=== PATIENT | male | born 1975 | race Caucasian/White ===

== ENCOUNTER 2023-09-08 13:37 | Inpatient (IN) | payer SELFPAY ==
[2023-09-08 13:39] VITALS: BP 112/67; PULSE 60; RESP 18; TEMP 37; O2SAT 98
--- NOTE | 2023-09-08 13:49 | ED.C_ITS ---
Documented by User: RAÚL Jay 09/08/23 14:55 HPI - Psych 2 General: Chief Complaint: Psychiatric Symptoms Stated Complaint: MHE Time Seen by Provider: 09/08/23 13:44 Source: patient Mode of arrival: ambulatory Limitations: no limitations History of Present Illness: Patient is a 48-year-old male who presents to ED today via police and EMS after he was found on the side of the road throwing fruit out to oncoming traffic. Upon police engagement, patient appeared acutely psychotic thus prompting them to bring him to the ED for psychiatric evaluation. Upon my assessment, patient's speech is tangential and pressured. He tells me he is from [place] but came from [place], [place] and is trying to get to [facility] to the vision of [employer] as they are stealing his paychecks. He states that several agents are out to take his social security and money. He talks about crooked city designer. He states the city designer that picked him up had semen/ejaculate on their pants. Many of his comments are disorganized and illogical. He does know he is in [place], [place] but cannot tell me why. States he walked here. MD complaint: altered mental status Onset (ago): unknown Treatments prior to arrival: none Review of Systems 2 General: Reports: ROS unobtainable due to mental status (psychosis) Physical Exam 2 Const: COMMON NORMALS: average body habitus, patient oriented x3 and alert GENERAL APPEARANCE: cooperative ORIENTATION/CONSCIOUSNESS: Yes awake, Yes oriented to person, Yes oriented to place and Yes oriented to time Neuro: ZEV COMA SCALE: document GCS findings Zev coma scale eye opening: Spontaneous [place] coma scale verbal response: Orientated [place] coma scale motor response: Obey commands [place] coma scale total score: 15 COMMON NORMALS: patient oriented x3 SENSORIUM/ORIENTATION: Yes alert, Yes oriented to person, Yes oriented to place and Yes oriented to time Psych: COMMON NORMALS: mental status grossly normal and cooperative A PPEARANCE: Yes grossly normal ACTIVITY/MOTOR BEHAVIOR: Yes appropriate eye contact SPEECH: Yes excessive and Yes Pressured speech present THOUGHT PROCESS: disorganized ATTENTION/CONCENTRATION: Yes concentration grossly impaired INSIGHT: Poor insight present (Psych) JUDGEMENT: Poor judgement present (Psych) Course 2 Consultations: Consultation #1: Dr. Silva-accepts to NPU once cleared medically Vital Signs: Vital signs: Vital Signs Temperature 98.6 F 09/08/23 13:39 Pulse Rate 60 09/08/23 13:39 Respiratory Rate 18 09/08/23 13:39 Blood Pressure 112/67 09/08/23 13:39 Pulse Oximetry 98 09/08/23 13:39 Oxygen Delivery Me thod Room Air 09/08/23 13:39 MDM - Psych Medical Decision Making Patient is a 48-year-old male here with symptoms of psychosis. He will be placed on a 96-hour hold. Dr. Moreira has also assessed patient. I have spoken to Dr. Silva who will accept patient to NPU pending medical clearance. Differential Diagnosis Likely acute psychosis, chronic schizophrenia and drug-induced psychotic disorder Lab Data I reviewed the patient's lab results. 09/08/23 14:10 09/08/23 14:10 Laboratory Results WBC 6.62 10^3/uL (3.29-11.43) 09/08/23 14:10 RBC 4.63 10^6/uL (3.85-5.65) 09/08/23 14:10 Hgb 14.80 g/dL (11.27-16.99) 09/08/23 14:10 Hct 46.2 % (37-53) 09/08/23 14:10 MCV 99.8 fl (82-101) 09/08/23 14:10 MCH 32.0 pg (27-33) 09/08/23 14:10 MCHC 32.0 g/dL (30-55) 09/08/23 14:10 RDW 13.0 % (12.1-15.1) 09/08/23 14:10 Plt Count 238 10^3/cmm (157-399) 09/08/23 14:10 MPV 10.0 fL (7.4-10.4) 09/08/23 14:10 Neut % (Auto) 73.2 % 09/08/23 14:10 Lymph % (Auto) 17.2 % 09/08/23 14:10 Brantley % (Auto) 6.3 % 09/08/23 14:10 Eos % (Auto) 2.1 % 09/08/23 14:10 Baso % (Auto) 0.9 % 09/08/23 14:10 Neut # (Auto) 4.84 10^3/uL (1.8-7.7) 09/08/23 14:10 Lymph # (Auto) 1.1 10^3/uL (0.8-4.8) 09/08/23 14:10 Brantley # (Auto) 0.4 10^3/uL (0.2-0.9) 09/08/23 14:10 Eos # (Auto) 0.1 10^3/uL (0.0-0.8) 09/08/23 14:10 Baso # (Auto) 0.1 10^3/uL (0.0-0.1) 09/08/23 14:10 Nucleated RBC % (auto) 0 % 09/08/23 14:10 Nucleated RBCs # 0.0 /100WBC 09/08/23 14:10 Sodium 141 mmol/L (136-145) 09/08/23 14:10 Potassium 4.4 mmol/L (3.5-5.1) 09/08/23 14:10 Chloride 103 mmol/L (98-107) 09/08/23 14:10 Carbon Dioxide 28 mmol/L (22-29) 09/08/23 14:10 Anion Gap 14.4 (5-19) 09/08/23 14:10 BUN 18 mg/dL (6-20) 09/08/23 14:10 Creatinine 0.8 mg/dL (0.7-1.2) 09/08/23 14:10 GFR Calculation 103.2 mL/min (90-130) 09/08/23 14:10 Glucose 72 mg/dL (65-115) 09/08/23 14:10 Calculated Osmolality 292 mOsm/kg (285-295) 09/08/23 14:10 Calcium 9.4 mg/dL (8.5-10.5) 09/08/23 14:10 Total Bilirubin 0.5 mg/dL (0.15-1.2) 09/08/23 14:10 AST 26 U/L (0-40) 09/08/23 14:10 ALT 22 U/L (0-41) 09/08/23 14:10 Alkaline Phosphatase 103 U/L (40-130) 09/08/23 14:10 Total Protein 8.2 g/dL (6.6-8.7) 09/08/23 14:10 Albumin 4.8 g/dL (3.5-5.2) 09/08/23 14:10 Globulin 3.4 g/dL (1.3-4.6) 09/08/23 14:10 Salicylates < 0.3 mg/dL (3-10) L 09/08/23 14:10 Urine Opiates Screen Negative ng/mL (Negative) 09/08/23 13:45 Acetaminophen < 5.0 ug/mL (10-30) L 09/08/23 14:10 Ur Barbiturates Screen Negative ng/mL (Negative) 09/08/23 13:45 Ur Phencyclidine Scrn Negative ng/mL (Negative) 09/08/23 13:45 Ur Amphetamines Screen Negative ng/mL (Negative) 09/08/23 13:45 U Benzodiazepines Scrn Negative ng/mL (Negative) 09/08/23 13:45 Urine Cocaine Screen Negative ng/mL (Negative) 09/08/23 13:45 U Marijuana (THC) Screen Negative ng/mL (Negative) 09/08/23 13:45 Ethyl Alcohol < 10 mg/dL (0-10) 09/08/23 14:10 No radiology studies performed this visit Discharge Plan Discharge Patient Disposition: Admitted As Inpatient Clinical Impression: Acute psychosis Condition: Stable Coding Level of Care Code ED Residential Treatment Counselor for Chg Fwd Documented by User: González Moreira MD 09/08/23 14:57 HPI - Psych 2 General: Chief Complaint: Psychiatric Symptoms Stated Complaint: MHE Time Seen by Provider: 09/08/23 13:44 Physical Exam 2 Neuro: ZEV COMA SCALE: document GCS findings Zev coma scale total score: 15 Course 2 Vital Signs: Vital signs: Vital Signs Temperature 98.6 F 09/08/23 13:39 Pulse Rate 60 09/08/23 13:39 Respiratory Rate 18 09/08/23 13:39 Blood Pressure 112/67 09/08/23 13:39 Pulse Oximetry 98 09/08/23 13:39 Oxygen Delivery Me thod Room Air 09/08/23 13:39 MDM - Psych Medical Decision Making I discussed the patient's history of present illness, physical exam findings, pertinent labs, pertinent radiographic exams and plan of care with the midlevel provider. I did personally have a [id number] evaluation and discussion with the patient regarding the plan of care and the need for further admission/transfer. Patient does appear to be acutely psychotic with pressured speech and tangential thinking he is having significant difficulty maintaining single train of thought. Given the patient's presentation I am concerned that his acute psychosis lends to his inability to provide for himself at present. I do agree that it would be in the patient's best interest to place him on a 96- hour hold for additional psychiatric evaluation treatment and care. Lab Data 09/08/23 14:10 09/08/23 14:10 Laboratory Results WBC 6.62 10^3/uL (3.29-11.43) 09/08/23 14:10 RBC 4.63 10^6/uL (3.85-5.65) 09/08/23 14:10 Hgb 14.80 g/dL (11.27-16.99) 09/08/23 14:10 Hct 46.2 % (37-53) 09/08/23 14:10 MCV 99.8 fl (82-101) 09/08/23 14:10 MCH 32.0 pg (27-33) 09/08/23 14:10 MCHC 32.0 g/dL (30-55) 09/08/23 14:10 RDW 13.0 % (12.1-15.1) 09/08/23 14:10 Plt Count 238 10^3/cmm (157-399) 09/08/23 14:10 MPV 10.0 fL (7.4-10.4) 09/08/23 14:10 Neut % (Auto) 73.2 % 09/08/23 14:10 Lymph % (Auto) 17.2 % 09/08/23 14:10 Brantley % (Auto) 6.3 % 09/08/23 14:10 Eos % (Auto) 2.1 % 09/08/23 14:10 Baso % (Auto) 0.9 % 09/08/23 14:10 Neut # (Auto) 4.84 10^3/uL (1.8-7.7) 09/08/23 14:10 Lymph # (Auto) 1.1 10^3/uL (0.8-4.8) 09/08/23 14:10 [place] # (Auto) 0.4 10^3/uL (0.2-0.9) 09/08/23 14:10 Eos # (Auto) 0.1 10^3/uL (0.0-0.8) 09/08/23 14:10 Baso # (Auto) 0.1 10^3/uL (0.0-0.1) 09/08/23 14:10 Nucleated RBC % (auto) 0 % 09/08/23 14:10 Nucleated RBCs # 0.0 /100WBC 09/08/23 14:10 Sodium 141 mmol/L (136-145) 09/08/23 14:10 Potassium 4.4 mmol/L (3.5-5.1) 09/08/23 14:10 Chloride 103 mmol/L (98-107) 09/08/23 14:10 Carbon Dioxide 28 mmol/L (22-29) 09/08/23 14:10 Anion Gap 14.4 (5-19) 09/08/23 14:10 BUN 18 mg/dL (6-20) 09/08/23 14:10 Creatinine 0.8 mg/dL (0.7-1.2) 09/08/23 14:10 GFR Calculation 103.2 mL/min (90-130) 09/08/23 14:10 Glucose 72 mg/dL (65-115) 09/08/23 14:10 Calculated Osmolality 292 mOsm/kg (285-295) 09/08/23 14:10 Calcium 9.4 mg/dL (8.5-10.5) 09/08/23 14:10 Total Bilirubin 0.5 mg/dL (0.15-1.2) 09/08/23 14:10 AST 26 U/L (0-40) 09/08/23 14:10 ALT 22 U/L (0-41) 09/08/23 14:10 Alkaline Phosphatase 103 U/L (40-130) 09/08/23 14:10 Total Protein 8.2 g/dL (6.6-8.7) 09/08/23 14:10 Albumin 4.8 g/dL (3.5-5.2) 09/08/23 14:10 Globulin 3.4 g/dL (1.3-4.6) 09/08/23 14:10 Salicylates < 0.3 mg/dL (3-10) L 09/08/23 14:10 Urine Opiates Screen Negative ng/mL (Negative) 09/08/23 13:45 Acetaminophen < 5.0 ug/mL (10-30) L 09/08/23 14:10 Ur Barbiturates Screen Negative ng/mL (Negative) 09/08/23 13:45 Ur Phencyclidine Scrn Negative ng/mL (Negative) 09/08/23 13:45 Ur Amphetamines Screen Negative ng/mL (Negative) 09/08/23 13:45 U Benzodiazepines Scrn Negative ng/mL (Negative) 09/08/23 13:45 Urine Cocaine Screen Negative ng/mL (Negative) 09/08/23 13:45 U Marijuana (THC) Screen Negative ng/mL (Negative) 09/08/23 13:45 Ethyl Alcohol < 10 mg/dL (0-10) 09/08/23 14:10 Discharge Plan Discharge Patient Disposition: Admitted As Inpatient Clinical Impression: Acute psychosis Condition: Stable Coding Level of Care Code ED Residential Treatment Counselor for Aga Link
[2023-09-08 14:17] LABS: Basophils # 0.1 10^3/uL (0.0-0.1); Basophils % 0.9 %; Eosinophils # 0.1 10^3/uL (0.0-0.8); Eosinophils % 2.1 %; Hematocrit 46.2 % (37-53); Lymphocytes # 1.1 10^3/uL (0.8-4.8); Lymphocytes % 17.2 %; Mean Corpuscular Volume 99.8 fl (82-101); Monocytes # 0.4 10^3/uL (0.2-0.9); Monocytes % 6.3 %; Neutrophils # 4.84 10^3/uL (1.8-7.7); Neutrophils % 73.2 %; Nucleated Red Blood Cells % 0 %; Platelet Count 238 10^3/cmm (157-399); Red Blood Count 4.63 10^6/uL (3.85-5.65); White Blood Count 6.62 10^3/uL (3.29-11.43)
[2023-09-08 14:22] LABS: Amphetamines Screen Urine Negative (Negative); Barbiturates Screen Urine Negative (Negative); Benzodiazepines Screen Urine Negative (Negative); Cocaine Screen Urine Negative (Negative); Opiate Screen Urine Negative (Negative); PCP Screen Urine Negative (Negative); THC Screen Urine Negative (Negative)
[2023-09-08 14:34] LABS: Alanine Aminotransferase 22 U/L (0-41); Albumin Level 4.8 g/dL (3.5-5.2); Alkaline Phosphatase 103 U/L (40-130); Anion Gap 14.4 (5-19); Aspartate Amino Transferase 26 U/L (0-40); Blood Urea Nitrogen 18 mg/dL (6-20); Calcium 9.4 mg/dL (8.5-10.5); Carbon Dioxide 28 mmol/L (22-29); Chloride 103 mmol/L (98-107); Globulin 3.4 g/dL (1.3-4.6); Glomerular Filtration Rate 103.2 mL/min (90-130); Glucose 72 mg/dL (65-115); Osmolality Calculated 292 mOsm/kg (285-295); Potassium 4.4 mmol/L (3.5-5.1); Sodium 141 mmol/L (136-145); Total Bilirubin 0.5 mg/dL (0.15-1.2); Total Protein 8.2 g/dL (6.6-8.7)
[2023-09-08 14:35] LABS: Acetaminophen < 5.0 ug/mL (10-30); Alcohol Level < 10 mg/dL (0-10); Salicylate < 0.3 mg/dL (3-10)
[2023-09-08 15:37] VITALS: BP 112/67; PULSE 60; RESP 18; TEMP 37; O2SAT 98
[2023-09-08 16:09] VITALS: BP 122/81; PULSE 53; RESP 15; TEMP 36.5; O2SAT 100
--- NOTE | 2023-09-08 17:30 | PC.NURSE ---
Patient arrived to the unit via wheelchair, with security and staff, at 1555. Patient cooperative while waiting on the bench ,eating a sandwhich. Skin assessment performed. No contraband found.
[2023-09-08 19:55] VITALS: BP 109/72; PULSE 50; RESP 18; TEMP 36.6; O2SAT 96
[2023-09-08 20:00] VITALS: BMI 21.9
[2023-09-09 06:00] VITALS: BP 124/77; PULSE 54; RESP 18; TEMP 36.4; O2SAT 99
--- NOTE | 2023-09-09 08:56 | PC.NURSE ---
PT IS NOTED TO BE ANXIOUS THIS AM WITH RAPID SPEECH. PT IS STATING I WORK FOR THE [employer] AND ALL MY WORK GOES STRAIGHT TO THEM BUT NO ONE KNOWS THAT. I THINK THE ONE TRENT I THREW THE ORANGE AT [employer] IN MY SNUFF BUT I CAN TAKE IT OR LEAVE IT YA KNOW. PT CONTINUES TO RAMBLE ABOUT BEING IN THE [employer] AND [employer] AND IT IS HARD FOR HIM TO STAY ON TRACK AND FOCUS. DENIES PAIN. DENIES SI/HI AND AVH AT THIS TIME. RATES ANXIETY AND DEPRESSION 0/10. ALL QUESTIONS ANSWERED AND SUPPORT VOICED.
[2023-09-09 14:00] VITALS: BP 114/72; PULSE 53; RESP 20; TEMP 37.1; O2SAT 98
--- NOTE | 2023-09-09 17:37 | W.PM.NPUH&PS ---
Providers/Chief Complaint Admitting Physician: Fish Silva MD Chief Complaint: MHE HPI NPU History of Present Illness Mehran Hare is a 48 year old maleWho presented to the emergency department on 09/08/2023 after the police had found the patient on the side of the road throwing fruit at oncoming cars in traffic. Patient was brought to the emergency department and had been unable to provide any reasonable history regarding why he was here in the emergency department. Patient was admitted to the neuropsychiatric unit for further evaluation and treatment. Patient on interview had stated that he was upset that to [employer] had a matute day check and had taken $63 million from him. He states that he was intending on going to [employer] in [facility] to get his money back. He had stated that [employer] was somehow involved with the [facility] and reports that he has been in the for over 25 years including the [employer] and the [employer] and that he had been monitoring all of these things. He had reported that he understood that he was in [facility] and stated that he had been previously living in [place] in a tent by himself. He had stated that he needed to leave here as soon as possible as he stated that I have places to go . He denied any drug or alcohol use. Patient had been negative for alcohol or any illicit drugs upon arrival to the neuropsychiatric unit. Inpatient psychiatric history: Patient had intimated previous involuntary placements in [place] but did not elaborate. Outpatient psychiatric history: Patient denied. Drug and alcohol history: None reported Current medications: None Allergies: No known drug allergies Social history: Patient reports that he lives in [place] and was born in [place] and raised in [place] by his biological parents in an intact family. He had reported a history of training.He had reported having multiple degrees. Meds NPU Home Medications Medication Instructions Recorded Confirmed Last Taken Type No Known Home Medications 09/08/23 09/08/23 Unknown History Allergies Allergy/AdvReac Type Severity Reaction Status Date / Time No Known Allergies Allergy Verified 09/08/23 16:08 Mental Status Exam MSE Comments: Patient was alert and oriented to person, place, and time. There was no evidence of any abnormal involuntary motor movements tics or tremors appreciated. He did appear to have significant psychomotor agitation as he appeared to be pacing the hallway. His gait was adequate. His hygiene was poor. His speech was increased in rate, spontaneous and normal in volume. his thought process was nonlinear and expansive. His thought content showed no evidence of homicidal or suicidal ideation. There was significant evidence of paranoia and grandiosity. There was considerable ideas of reference and evidence of bizarre delusions. His attention span appeared poor. His mood was described as all right. His affect appeared somewhat irritable. His recent and remote memory were not tested. His insight appeared impaired. His judgment was poor. His impulse control appeared poor. Vitals/I&O/Wt Last Vital Signs Temp 98.7 F 09/09/23 14:00 Pulse 53 L 09/09/23 14:00 Resp 20 H 09/09/23 14:00 BP 114/72 09/09/23 14:00 Pulse Ox 98 09/09/23 14:00 O2 Del Method Room Air 09/09/23 06:00 Weight last 48 hrs Weight 65.544 kg Weight 65.317 kg Data NPU 09/08/23 14:10 09/08/23 14:10 A&P Assessment and plan (1) Unspecified psychosis: Plan 48-year-old male who is involuntarily admitted with active psychosis and possible emelina currently not medicated with reports of homelessness. 1. Therapeutic observation 15 minute checks 2. Will attempt to gather collateral information 3. Patient refusing medications at this time, hospitalized involuntarily 4. Engage patient in milieu, group and individual therapy. Involuntary Hold Information 96 Hour Hold: 96 Hour Involuntary Admission: Yes 96 Hour Hold Ending Date: 09/14/23 96 Hour Hold Ending Time: 00:01 Attestations NPU Medical Necessity Statement*: Inpatient hospitalization is medically necessary and deemed to ?be ?the clinically appropriate intervention ?at this time.? We will monitor/initiate medications and make changes as indicated.? The patient will be in the hospital for over 2 midnights.? The patient?s likely length of stay 3-5 days. Coding Level of Care Code Acute Code for Chg Fwd Diagnoses Unspecified psychosis F29
[2023-09-09 21:02] VITALS: BP 106/71; PULSE 52; RESP 18; TEMP 36.3; O2SAT 98
[2023-09-10 06:00] VITALS: BP 98/55; PULSE 62; RESP 16; TEMP 36.6; O2SAT 98
--- NOTE | 2023-09-10 08:48 | PC.NURSE ---
PT CONTINUES TO HAVE FLIGHT OF IDEAS WITH RAMBLING, PRESSURED SPEECH. PT CONTINUES TO STATE AIN'T NOTHING WRONG WITH ME YOU KNOW WHAT I MEAN. DENIES SI/HI AND AVH AT THIS TIME. RATES ANXIETY AND DEPRESSION 0/10. PT IS UP AND WATCHING TV THE MAJORITY OF DAY AND INTERACTS WITH PEERS AND STAFF FREQUENTLY. ALL QUESTIONS ANSWERED AND SUPPORT WAS VOICED. DENIES PAIN.
[2023-09-10 14:00] VITALS: BP 117/64; PULSE 54; RESP 15; TEMP 36.6; O2SAT 99
--- NOTE | 2023-09-10 16:39 | PC.NURSE ---
Patient was seen on the video yelling and pointing. Patient was heard yelling. Patient was alone in the dayroom, y
--- NOTE | 2023-09-10 16:41 | PC.NURSE ---
Patient was seen yelling and pointing on the camera while watching TV in the dayroom. Patient was heard yelling from the dayroom to the nurses' station. This nurse went to check on patient. Patient agitated. Patient said that there was a girl with dark hair and glasses talking about doing meth. Patient said that he doesn't care if they want to gizz in their panties . Patient said things like, he is here to get evaluated, give him his walking papers. Patient didn't want any medications to help calm his nerves, stating that he doesn't need any meds. Patient stated that he has a blue karla on his pants so that his pants can be tested later for semen. This nurse observed a blue karla on his pants, apparently made by a crayon.
--- NOTE | 2023-09-10 16:50 | PC.NURSE ---
PT WAS OBSERVED YELLING VERY LOUDLY AND CUSSING AT THE TV. SPEECH WAS LOUD, FAST AND ANIMATED. RN WENT TO SEE WHAT WAS WRONG WITH PT WHEN PT STATED I'M PISSED OFF BECAUSE THAT GIRL CAME DOWN HERE TALKING ABOUT DOPE AND I DON'T DO DOPE. I NEED THESE PANTS TESTED FOR SEMEN BECAUSE I KNOW SOMEONE EJACULATED ON THEM. RN OBSERVED THAT PT WROTE IN BLUE CRAYON AND MARKED THE TOP PORTION OF HIS GREEN SCRUBS. PT STATES HE HAS MARKED THE AREA THAT WILL NEED TO BE SENT OFF AND TESTED FOR SEMEN. RN OFFERED PRN MEDICATIONS TO ASSIST WITH PT CALMING DOWN AND DECREASING ANXIETY. PT STATES NAH I DON'T NEED THAT BOSS LADY. QUESTIONS WERE ANSWERED AND SUPPORT WAS VOICED.
--- NOTE | 2023-09-10 17:51 | PC.NURSE ---
PT CAME TO NURSES STATION VERY AGITATED AND MAD STATING HE SAW A MAN WITH GLASSES CAME UP TO HIM AND SAID MOVE, MOVE, MOVE THERES BLOOD ON THE SHEETS, THEN THE MAN RAN OUT OF THE DOOR BY THE NURSES STATION. THE DOOR BY THE NURSES STATION IS LOCKED AND THE STAFF WOULD HAVE HAD TO LET THIS MAN WITH GLASSES OUT OF THE UNIT AND NO ONE HAS. PT IS OBSERVED BEING DELUSIONAL AND HAS BEEN OBSERVED WATCHING TV AND THEN MAKING STATEMENTS ABOUT THE PEOPLE IN THE TV BEING REAL AND THEY KEEP TRYING TO GET ME BUT THEY RUN OUT OF HERE FIRST. PT IS RAMBLING WITH EXCESSIVE RAPID SPEECH HAVING FLIGHT OF IDEAS. PT IS PARANOID AND CONTINUES TO HAVE DELUSIONS DESPITE VERBAL REDIRECTION AND RE-ORIENTATION BY STAFF. RN OFFERED PRN MEDICATIONS TO CALM BUT PT REFUSED STATING NAH I DON'T NEED ANY OF THAT I JUST NEED MY WALKING PAPERS AND IF THAT TRENT COMES BACK AND TELLS ME TO MOVE THEN THAT'S IT. PT STATES HE SHOULD HAVE HIT THE TELEGRAPH REPEATER MECHANIC INSTEAD OF COMPLYING TO COME TO THE ER FOR A PSYCH EVALUATION. SUPPORT WAS VOICED.
--- NOTE | 2023-09-10 18:07 | P.NPUPN_ITS ---
Subjective NPU 2 Subjective: 1-haus-idrt-old male admitted with psyc hosis currently involuntarily hospitalized. He had appeared more agitated today stating that he did not need any medication. He had continued to report that the government was trying to prevent him from receiving his money. He had reported no problems with sleep. There was no acts of aggression noted yet on the unit as the patient did not require any as needed medications. He had continued to appear evasive in regards to his living situation. He reported no side effects in the past from previous medications but intimated having been previously hospitalized in [place] but would not elaborate further. Mental Status Exam 2 MSE Comments: Patient was alert and oriented to person, place, and time. There was no evidence of any abnormal involuntary motor movements tics or tremors appreciated. He did appear to have significant psychomotor agitation as he appeared to be pacing the hallway. His gait was adequate. His hygiene was poor. His speech was increased in rate, spontaneous and normal in volume. His thought process was nonlinear and expansive. His thought content showed no evidence of homicidal or suicidal ideation. There was significant evidence of grandiosity and ideas of reference and delusions. His attention span appeared poor. His mood was described as okay. His affect appeared somewhat irritable and mood incongruent. His recent and remote memory were not tested. His insight appeared impaired. His judgment was poor. His impulse control appeared poor. Vitals/I&O/Wt Last Vital Signs Temp 97.8 F 09/10/23 14:00 Pulse 54 L 09/10/23 14:00 Resp 15 09/10/23 14:00 BP 117/64 09/10/23 14:00 Pulse Ox 99 09/10/23 14:00 O2 Del Method Room Air 09/10/23 06:00 Weight last 48 hrs Weight 65.544 kg Weight 65.317 kg Data NPU 09/08/23 14:10 09/08/23 14:10 A&P Assessment and plan (1) Unspecified psychosis: Plan 48-year-old male who is involuntarily admitted with active psychosis and possible emelina currently not medicated with reports of homelessness. 1. Therapeutic observation 15 minute checks 2. Will attempt to gather collateral information 3. Patient refusing medications at this time, hospitalized involuntarily and may require forced medication if he remains agitated and unable to control impulses. 4. Engage patient in milieu, group and individual therapy. Involuntary Hold Information 2 96 Hour Hold: 96 Hour Involuntary Admission: Yes 96 Hour Hold Ending Date: 09/14/23 96 Hour Hold Ending Time: 00:01 Attestations NPU 2 Medical Necessity Statement*: Inpatient hospitalization is medically necessary and deemed to ?be ?the clinically appropriate intervention ?at this time.? We will monitor/initiate medications and make changes as indicated.? The patient will be in the hospital for over 2 midnights.? The patient?s likely length of stay 4-6 days. Coding Level of Care Code Acute Code for Chg Fwd Diagnoses Unspecified psychosis F29
[2023-09-10 22:00] VITALS: BP 124/71; PULSE 60; RESP 17; TEMP 36.6; O2SAT 99
[2023-09-11 06:00] VITALS: BP 117/76; PULSE 51; RESP 18; TEMP 36.7; O2SAT 97
--- NOTE | 2023-09-11 09:35 | PC.NURSE ---
patient talking quietly. Patient denies SI, HI, AVH, depression, and anxiety. Patient's speech is pressured and tangential. Patient keeps talking about women coming in their pants and about the secret service. Patient states that he doesn't need or want any medication.
[2023-09-11 14:00] VITALS: BP 110/76; PULSE 54; RESP 18; TEMP 36.9; O2SAT 99
--- NOTE | 2023-09-11 14:04 | W.PM.NPUDCS ---
Diagnoses at Discharge Discharge Diagnosis (1) Unspecified psychosis: Status: Acute Reason for Visit Reason for Visit: MHE Brief History: History of Present Illness Mehran Hare is a 48 year old maleWho presented to the emergency department on 09/08/2023 after the police had found the patient on the side of the road throwing fruit at oncoming cars in traffic. Patient was brought to the emergency department and had been unable to provide any reasonable history regarding why he was here in the emergency department. Patient was admitted to the neuropsychiatric unit for further evaluation and treatment. Patient on interview had stated that he was upset that armida kwong had a matute day check and had taken $63 million from him. He states that he was intending on going to [place] in [facility] to get his money back. He had stated that [employer] was somehow involved with the [facility] and reports that he has been in the for over 25 years including the [employer] and the [employer] and that he had been monitoring all of these things. He had reported that he understood that he was in [facility] and stated that he had been previously living in [place] in a tent by himself. He had stated that he needed to leave here as soon as possible as he stated that I have places to go . He denied any drug or alcohol use. Patient had been negative for alcohol or any illicit drugs upon arrival to the neuropsychiatric unit. Inpatient psychiatric history: Patient had intimated previous involuntary placements in [place] but did not elaborate. Outpatient psychiatric history: Patient denied. Drug and alcohol history: None reported Current medications: None Allergies: No known drug allergies Social history: Patient reports that he lives in [place] and was born in [place] and raised in [place] by his biological parents in an intact family. He had reported a history of training.He had reported having multiple degrees. Hospital Course Hospital Course During the hospitalization, the patient had routine laboratory studies which were within normal limits except for a few outliers.? Additionally, there was a general medical evaluation which was also within normal limits and revealed no new acute processes.? At the time of discharge, lethality was denied and the patient was evaluated for 2 nights with no dangerous behavior noted. He continued to show evidence of a psychotic process with active delusions but did not want to be treated with medication and he was able to engage in self care and had no threatening behavior noted. He was not a candidate for forced medication and continued involuntary stay and was thereby discharged. Mood and anxiety were well managed.? The patient endorsed a plan to avoid all drugs of abuse and follow up with the aftercare recommendations of the treatment team.? The patient was evaluated and deemed to be absent credible lethality and had achieved the maximum benefit from an inpatient hospitalization, and so was discharged. ? Involuntary Hold Information 96 Hour Hold: 96 Hour Involuntary Admission: Yes 96 Hour Hold Ending Date: 09/14/23 96 Hour Hold Ending Time: 00:01 Mental Status Exam MSE Comments: Patient was alert and oriented to person, place, and time. There was no evidence of any abnormal involuntary motor movements tics or tremors appreciated. No psychomotor agitation or any abnormal involuntary motor movements appreciated. His gait was adequate. His hygiene was fair on discharge. His speech was normal in rate, spontaneous and normal in volume. His thought process was linear with perseveration regarding his finances. His thought content showed no evidence of homicidal or suicidal ideation. There was the presence of persecutory delusions. His attention span appeared adequate. His mood was described as fine. His affect was pleasant and euthymic on discharge. His recent and remote memory were at baseline. His insight appeared limited. His judgment was fair. His impulse control appeared guarded at discharge. Discharge Data Studies Completed and Pending: Laboratory Results WBC 6.62 10^3/uL (3.2 9-11.43) 09/08/23 14:10 RBC 4.63 10^6/uL (3.8 5-5.65) 09/08/23 14:10 Hgb 14.80 g/dL (11.27 -16.99) 09/08/23 14:10 Hct 46.2 % (37-53) 09/08/23 14:10 MCV 99.8 fl (82-101) 09/08/23 14:10 MCH 32.0 pg (27-33) 09/08/23 14:10 MCHC 32.0 g/dL (30-55) 09/08/23 14:10 RDW 13.0 % (12.1-15.1 ) 09/08/23 14:10 Plt Count 238 10^3/cmm (157 -399) 09/08/23 14:10 MPV 10.0 fL (7.4-10.4 ) 09/08/23 14:10 Neut % (Auto) 73.2 % 09/08/23 14:10 Lymph % (Auto) 17.2 % 09/08/23 14:10 Dewey % (Auto) 6.3 % 09/08/23 14:10 Eos % (Auto) 2.1 % 09/08/23 14:10 Baso % (Auto) 0.9 % 09/08/23 14:10 Neut # (Auto) 4.84 10^3/uL (1.8 -7.7) 09/08/23 14:10 Lymph # (Auto) 1.1 10^3/uL (0.8- 4.8) 09/08/23 14:10 Dewey # (Auto) 0.4 10^3/uL (0.2- 0.9) 09/08/23 14:10 Eos # (Auto) 0.1 10^3/uL (0.0- 0.8) 09/08/23 14:10 Baso # (Auto) 0.1 10^3/uL (0.0- 0.1) 09/08/23 14:10 Nucleated RBC % (a uto) 0 % 09/08/23 14:10 Nucleated RBCs # 0.0 /100WBC 09/08/23 14:10 Sodium 141 mmol/L (136-1 45) 09/08/23 14:10 Potassium 4.4 mmol/L (3.5-5 .1) 09/08/23 14:10 Chloride 103 mmol/L (98-10 7) 09/08/23 14:10 Carbon Dioxide 28 mmol/L (22-29) 09/08/23 14:10 Anion Gap 14.4 (5-19) 09/08/23 14:10 BUN 18 mg/dL (6-20) 09/08/23 14:10 Creatinine 0.8 mg/dL (0.7-1. 2) 09/08/23 14:10 GFR Calculation 103.2 mL/min (90- 130) 09/08/23 14:10 Glucose 72 mg/dL (65-115) 09/08/23 14:10 Calculated Osmolal ity 292 mOsm/kg (285- 295) 09/08/23 14:10 Calcium 9.4 mg/dL (8.5-10 .5) 09/08/23 14:10 Total Bilirubin 0.5 mg/dL (0.15-1 .2) 09/08/23 14:10 AST 26 U/L (0-40) 09/08/23 14:10 ALT 22 U/L (0-41) 09/08/23 14:10 Alkaline Phosphata se 103 U/L (40-130) 09/08/23 14:10 Total Protein 8.2 g/dL (6.6-8.7 ) 09/08/23 14:10 Albumin 4.8 g/dL (3.5-5.2 ) 09/08/23 14:10 Globulin 3.4 g/dL (1.3-4.6 ) 09/08/23 14:10 Salicylates < 0.3 mg/dL (3-10 ) L 09/08/23 14:10 Urine Opiates Scre en Negative ng/mL (N egative) 09/08/23 13:45 Acetaminophen < 5.0 ug/mL (10-3 0) L 09/08/23 14:10 Ur Barbiturates Sc reen Negative ng/mL (N egative) 09/08/23 13:45 Ur Phencyclidine S crn Negative ng/mL (N egative) 09/08/23 13:45 Ur Amphetamines Sc reen Negative ng/mL (N egative) 09/08/23 13:45 U Benzodiazepines Scrn Negative ng/mL (N egative) 09/08/23 13:45 Urine Cocaine Scre en Negative ng/mL (N egative) 09/08/23 13:45 U Marijuana (THC) Screen Negative ng/mL (N egative) 09/08/23 13:45 Ethyl Alcohol < 10 mg/dL (0-10) 09/08/23 14:10 Vitals: Last Vital Signs Temp 98.0 F 09/11/23 06:00 Pulse 51 L 09/11/23 06:00 Resp 18 09/11/23 06:00 BP 117/76 09/11/23 06:00 Pulse Ox 97 09/11/23 06:00 O2 Del Method Room Air 09/11/23 06:00 Discharge Plan Discharge Patient Disposition: Home Condition: Stable Prescriptions: No Action No Known Home Medications Discharge Orders: Discharge Order (Routine); Ordered 09/11/23 Ordered By: Adiel Abdi Referrals: [facility] [Other] - 09/11/23 Discharge Diet: Usual diet Discharge Activity: Resume usual activity Patient Instructions: Psychotic Disorder (DC), Opioid Safety Discharge Attestations NPU Time Spent in Discharge Care*: less than 30 min Specific Discharge Activities: Specific discharge activities: educating patient, discussing with family independence case manager/social workers/dc planners and documenting/other paperwork Coding Level of Care Code Acute Code for Chg Fwd Diagnoses Unspecified psychosis F29
[2023-09-11 14:14] VITALS: BP 117/76; PULSE 51; RESP 18; TEMP 36.7; O2SAT 97
== END 2023-09-11 14:35 | disposition home or self-care (01) | DRG 885 ==
LOC: ER 15:17 → NP 15:31
PROVIDERS: Admitting Provider Psychiatry & Neurology Psychiatry; Emergency Provider Physician Assistant; Visit Provider Psychiatry & Neurology Psychiatry
DX: F29 Unspecified psychosis not due to a substance or known physiological condition (principal); Z59.00 Homelessness unspecified
CPT/HCPCS: 36415; 80053; 80306; 80307; 85025; 97150; 97165; 99285